=== PATIENT | female | born 1995 | race Caucasian/White ===

== ENCOUNTER 2017-11-03 23:49 | Emergency (ER) | payer OTHER ==
[2017-11-04] VITALS: BP 113/77; PULSE 98; RESP 18; TEMP 97.9; O2SAT 98
--- NOTE | 2017-11-04 00:05 | EDPHY ---
H & P Time Seen by Provider: 11/03/17 23:56 HPI/ROS: CHIEF COMPLAINT: Chin laceration HISTORY OF PRESENT ILLNESS: 22-year-old female with no history of anticoagulant use arrives via private vehicle after she slipped on ice impacting her chin prior to arrival. No loss of consciousness. No nausea or vomiting. No midline C-spine pain. No intraoral lesions. No dental malalignment. No TMJ pain. No TMJ abnormality. PRIMARY CARE PROVIDER: REVIEW OF SYSTEMS: A ten point review of systems was performed and is negative with the exception of the items mentioned in the HPI PAST MEDICAL/SURGICAL HISTORY: no anticoagulant use, no relevant medical/ surgical history SOCIAL HISTORY: denies alcohol use at time of incident PHYSICAL EXAM 1) GENERAL: Well-developed, well-nourished, alert and oriented. Appears to be in no acute distress. Answering questions appropriately. 2) HEAD: Normocephalic, atraumatic 3) HEENT: Pupils equal, round, reactive to light bilaterally. Negative Horners. Nasopharynx, oropharynx, clear. No deformity or angulation of nose. No septal hematoma. No rhinorrhea. No oral trauma. Ears bilaterally with normal tympanic membranes. No hemotympanum. No fluid or blood in the external auditory canal. No raccoon eyes. No Daniel sign. Teeth are normally aligned with no gross malocclusion, TMJ bilaterally nontender, facial bones nontender including the zygomatic arch, maxilla mandible. Inferior chin 3.5 cm well- demarcated transverse laceration. 4) NECK: No cervical collar is on. Posterior cervical spine is nontender, no stepoff, no effusion. Full range of motion which does not elicit any midline cervical spine pain, no posterior midline tenderness, no step-off. 5) LUNGS: Clear to auscultation bilaterally, 6) HEART: [Regular rate and rhythm, 7) ABDOMEN: No guarding, no rebound, no focal tenderness, no peritoneal signs, no signs of trauma, no ecchymosis 8) MUSCULOSKELETAL: Moving all extremities, no focal areas of tenderness, no obvious trauma. 9) BACK: No midline vertebral tenderness, no fluctuance, no step-off, no obvious trauma, no visual or palpable abnormality. 10) SKIN: chin laceration DIFFERENTIAL DIAGNOSIS: In no particular include but limited to laceration, abrasion, mandible fracture, mandible dislocation, dental fracture Smoking Status: Never smoked Constitutional: Initial Vital Signs Temperature (C) 36.6 C 11/03/17 23:55 Heart Rate 98 11/03/17 23:55 Respiratory Rate 18 11/03/17 23:55 Blood Pressure 113/77 11/03/17 23:55 O2 Sat (%) 98 11/03/17 23:55 O2 Delivery Mode Room Air Allergies/Adverse Reactions: amoxicillin Allergy (Verified 11/03/17 23:54) Penicillins Allergy (Verified 11/03/17 23:54) Home Medications: Medication Instructions Recorded NK [No Known Home Meds] 11/03/17 MDM/Departure - MDM Procedures: Procedure: Laceration repair. I explained the indications, risks and benefits for both laceration repair and anesthetic administration. Verbal consent was obtained from the patient . The laceration on the chin was anesthetized using 0.5% bupivicaine with epinephrine . After anesthetic administered the patient was observed for a period of time and had no apparent adverse effects. The wound was cleaned, prepped, draped in normal sterile fashion and explored to its base. No foreign body seen, no foreign bodies palpated. There were no deep structures involved. The wound was repaired with 9 simple interrupted 6 0 Prolene. The wound repair was complex. The procedure was performed by myself. Patient has been informed that scarring will occur, although efforts have been made to minimize this. ED Course/Re-evaluation: I do not think that imaging of the head, C-spine, maxillofacial region currently indicated, doubt cervical fracture dislocation, doubt intracranial hemorrhage, doubt maxillofacial fracture. Care of patient under supervision of secondary supervising physician Dr North . - Depart Disposition: Home, Routine, Self-Care Clinical Impression: Laceration of chin Qualifiers: Encounter type: initial encounter Qualified Code(s): S01.81XA - Laceration without foreign body of other part of head, initial encounter Condition: Good Instructions: Laceration (ED) Additional Instructions: Return to the ER if you develop redness, swelling, discharge, warmth to the wound, or any other symptoms that concern you. Referrals: Return, to the ER in 5 days for suture removal [Other] - 11/09/17
== END 2017-11-04 00:32 | disposition home or self-care (01) ==
PROC: 0HQ1XZZ Repair Face Skin, External Approach (ICD-10-PCS; principal; 2017-11-03)
DX: S01.81XA Laceration without foreign body of other part of head, initial encounter (principal); W00.0XXA Fall on same level due to ice and snow, initial encounter